=== PATIENT | male | born 1975 | race Caucasian/White ===

== ENCOUNTER 2017-01-07 17:22 | Emergency (ER) | payer OTHER ==
[~2017-01-07] VITALS: Ht 175.2 cm; Wt 102.1 kg
[~2017-01-07 17:22] MED LIST: ACULAR 3 ML3 ML OPH; AUGMENTIN 500 M1 TAB PO; AUGMENTIN 875875 MG PO; BENADRYL50 MG PO; CILOXAN 5 ML5 M1 OT; DUONEB 3 MG/3 ML3 M1 INH; KEFLEX500 M1 PO; KEFLEX500 MG PO; LISINOPRIL10 M1 PO; LOMOTIL 0.025 M1 TA1 PO; LOPRESSOR25 MG PO; MEDROL DOSEPAK4 MG PO; MOTRIN800 MG PO; NASONEX0.05 MG/AC NAS; PREDNISONE20 M1 PO; ROBITUSSIN AC 110 ML PO; SINGULAIR10 M1 PO; TOBREX OPHTH S2.5 ML OPH; VIBRAMYCIN100 MG PO; ZITHROMAX250 MG PO; ZOFRAN ODT4 MG SL
[2017-01-07] MEDS ORDERED: SEPTDS PO (18:47)
== END 2017-01-07 18:33 | disposition home or self-care (01) ==
LOC: ED 17:22
DX: S61.012A Laceration without foreign body of left thumb without damage to nail, initial encounter (principal); F17.200 Nicotine dependence, unspecified, uncomplicated; Z79.899 Other long term (current) drug therapy; W45.8XXA Other foreign body or object entering through skin, initial encounter; Y93.89 Activity, other specified; Y92.89 Other specified places as the place of occurrence of the external cause; Y99.8 Other external cause status

== ENCOUNTER 2017-01-19 05:10 | Emergency (ER) | payer OTHER ==
[~2017-01-19] VITALS: Ht 177.8 cm; Wt 102.1 kg
[~2017-01-19 05:10] MED LIST changes: +SEPTDS PO
[2017-01-19] MEDS ORDERED: BENADRYL ALLERG25 M5 PO (06:28)
[2017-01-19] MEDS ORDERED: PREDNISONE20 M1 PO (06:28)
== END 2017-01-19 06:56 | disposition home or self-care (01) ==
LOC: ED 05:10
DX: R21 Rash and other nonspecific skin eruption (principal); T49.1X5A Adverse effect of antipruritics, initial encounter; F17.200 Nicotine dependence, unspecified, uncomplicated; Z88.2 Allergy status to sulfonamides; Z88.8 Allergy status to other drugs, medicaments and biological substances; Z79.899 Other long term (current) drug therapy; Y92.9 Unspecified place or not applicable

== ENCOUNTER 2018-11-13 07:43 | Emergency (ER) | payer OTHER ==
[~2018-11-13] VITALS: Ht 177.8 cm; Wt 115.7 kg
[~2018-11-13 07:43] MED LIST changes: +BENADRYL ALLERG25 M5 PO
[2018-11-13] MEDS ORDERED: VIBRAMYCIN100 MG PO (07:52)
== END 2018-11-13 07:55 | disposition home or self-care (01) ==
LOC: ED 07:43
DX: J32.9 Chronic sinusitis, unspecified (principal); K21.9 Gastro-esophageal reflux disease without esophagitis; I10 Essential (primary) hypertension; Z79.899 Other long term (current) drug therapy; Z98.890 Other specified postprocedural states; Z88.1 Allergy status to other antibiotic agents; Z88.8 Allergy status to other drugs, medicaments and biological substances

== ENCOUNTER 2018-12-05 14:31 | Emergency (ER) | payer OTHER ==
[~2018-12-05] VITALS: Ht 177.8 cm; Wt 108.9 kg
[2018-12-05] MEDS ORDERED: AMOXICILLIN500 M2 PO (15:15)
== END 2018-12-05 15:17 | disposition home or self-care (01) ==
LOC: ED 14:31
DX: J02.9 Acute pharyngitis, unspecified (principal); H92.02 Otalgia, left ear; I10 Essential (primary) hypertension; K21.9 Gastro-esophageal reflux disease without esophagitis; F17.200 Nicotine dependence, unspecified, uncomplicated; Z88.2 Allergy status to sulfonamides; Z79.899 Other long term (current) drug therapy; Z79.2 Long term (current) use of antibiotics

== ENCOUNTER 2019-01-31 12:50 | Emergency (ER) | payer OTHER ==
[~2019-01-31 12:50] MED LIST changes: +AMOXICILLIN500 M2 PO
[2019-01-31 13:38] LABS: BASO % 0.2 % (0.0-1.0); EOS # 0.1 10*3/uL (0.0-0.4); EOS % 1.1 % (1.0-4.0); HEMATOCRIT 43.7 % (42.0-52.0); HEMOGLOBIN 14.7 g/dl (14.0-18.0); LYMPH # 1.4 10*3/uL (1.3-4.4); LYMPH % 14.8 % (27.0-41.0); MEAN CELL VOLUME 89.2 fl (80.0-94.0); MEAN CORPUSCULAR HGB CONC 33.6 g/dl (33.0-37.0); MEAN PLATELET VOLUME 9.3 fl (9.6-12.3); MONO # 0.6 10*3/uL (0.1-1.0); MONO % 6.5 % (3.0-9.0); NEUT # 7.1 10*3/uL (2.3-7.9); NEUT % 76.8 % (47.0-73.0); PLATELET COUNT AUTOMATED 231 10*3/uL (130-400); RED CELL DISTRI WIDTH 12.7 % (0-14.5); WHITE BLOOD COUNT 9.3 10*3/uL (4.8-10.8)
[2019-01-31 13:54] LABS: ALBUMIN 3.7 gm/dl (3.1-4.5); ALKALINE PHOSPHATASE 50 U/L (45-117); BUN 16 mg/dl (7-24); CHLORIDE 104 mmol/L (98-107); CREATININE 1.19 mg/dL (0.70-1.30); LIPASE 81 U/L (73-393); POTASSIUM 3.7 mmol/L (3.5-5.1); SGOT/AST 19 IU/L (3-35); SGPT/ALT 45 U/L (12-78); SODIUM 137 mmol/L (136-145)
[2019-01-31] MEDS ORDERED: PHENERGAN25 M3 PO (15:40)
== END 2019-01-31 15:44 | disposition home or self-care (01) ==
LOC: ED 12:50
PROVIDERS: Emergency Medicine
DX: K52.9 Noninfective gastroenteritis and colitis, unspecified (principal); K21.9 Gastro-esophageal reflux disease without esophagitis; I10 Essential (primary) hypertension; Z88.2 Allergy status to sulfonamides; Z79.2 Long term (current) use of antibiotics; Z79.899 Other long term (current) drug therapy

== ENCOUNTER → 2020-11-06 | Outpatient (CLI) | payer OTHER ==
[~2020-11-06] MED LIST changes: +PHENERGAN25 M3 PO
== END | disposition home or self-care (01) ==
LOC: COVID19 15:20
PROVIDERS: ATTEND Student in an Organized Health Care Education/Training Program
DX: Z11.52 Encounter for screening for COVID-19 (principal)

== ENCOUNTER 2021-01-10 07:34 | Emergency (ER) | payer OTHER ==
[~2021-01-10] VITALS: Ht 175.2 cm; Wt 106.6 kg
[2021-01-10 08:13] LABS: BASO % 0.4 % (0.0-1.0); EOS # 0.3 10*3/uL (0.0-0.4); EOS % 4.4 % (1.0-4.0); HEMATOCRIT 41.7 % (42.0-52.0); LYMPH # 1.7 10*3/uL (1.3-4.4); LYMPH % 24.3 % (27.0-41.0); MEAN CELL VOLUME 87.8 fl (80.0-94.0); MEAN CORPUSCULAR HGB 30.3 pg (27.0-31.0); MEAN CORPUSCULAR HGB CONC 34.5 g/dl (33.0-37.0); MEAN PLATELET VOLUME 9.3 fl (9.6-12.3); MONO # 0.7 10*3/uL (0.1-1.0); MONO % 9.3 % (3.0-9.0); NEUT # 4.3 10*3/uL (2.3-7.9); NEUT % 60.3 % (47.0-73.0); PLATELET COUNT AUTOMATED 241 10*3/uL (130-400); RED BLOOD COUNT 4.75 10*6/uL (4.50-5.90); RED CELL DISTRI WIDTH 12.5 % (0-14.5); WHITE BLOOD COUNT 7.1 10*3/uL (4.8-10.8)
[2021-01-10 08:33] LABS: ALBUMIN 3.5 gm/dl (3.1-4.5); ALKALINE PHOSPHATASE 88 U/L (45-117); BUN 15 mg/dl (7-24); CHLORIDE 107 mmol/L (98-107); CREATININE 0.95 mg/dL (0.70-1.30); POTASSIUM 3.9 mmol/L (3.5-5.1); SGOT/AST 20 IU/L (3-35); SGPT/ALT 37 U/L (12-78); SODIUM 140 mmol/L (136-145)
[2021-01-10 08:37] LABS: BILIRUBIN Negative (Negative); BLOOD Trace-Intact (Negative); CLARITY Clear (Clear); COLOR Yellow (Yellow); GLUCOSE Negative (Negative); KETONE Trace (Negative); LEUKO ESTERASE Negative (Negative); NITRITE Negative (Negative); PH 6.5 (4.5-8.0); SPECIFIC GRAVITY >= 1.030 (1.001-1.030)
[2021-01-10 08:46] LABS: CALCIUM OXALATE CRYSTALS Trace; RBC 16-20 rbc/hpf (0-2)
[2021-01-10 08:49] LABS: TOTAL PROTEIN 7.2 gm/dL (6.4-8.2)
[2021-01-10 08:50] LABS: LIPASE 130 U/L (73-393)
[2021-01-10] MEDS ORDERED: ZOFRAN4 MG PO (10:38)
[2021-01-10] MEDS ORDERED: DULCOLAX STOOL100 M1 PO (10:38)
== END 2021-01-10 10:51 | disposition home or self-care (01) ==
LOC: ED 07:34
PROVIDERS: Family Medicine
DX: K59.00 Constipation, unspecified (principal); N20.0 Calculus of kidney; K64.9 Unspecified hemorrhoids